=== PATIENT | male | born 1995 | race Caucasian/White ===

== ENCOUNTER 2019-11-06 08:52 | Emergency (ER) | payer OTHER, SELFPAY ==
[2019-11-06 08:53] VITALS: BP 140/91; PULSE 83; RESP 16; TEMP 36.6; O2SAT 100; BMI 30.4
--- NOTE | 2019-11-06 08:53 | EKG12_ITS ---
Test Reason : DIZZINESS Blood Pressure : / mmHG Vent. Rate : 078 BPM Atrial Rate : 078 BPM P-R Int : 142 ms QRS Dur : 090 ms QT Int : 350 ms P-R-T Axes : 035 048 017 degrees QTc Int : 399 ms Normal sinus rhythm Normal ECG Confirmed by ANISH HOLDER ([id number]), writer editor SCOTT ALMAGUER ([id number]) on 11/08/2019 7:40:20 AM Referred By: GUILLERMINA Confirmed By:ANISH HOLDER
--- NOTE | 2019-11-06 08:54 | CT_ITS ---
STUDY: CT BRAIN WITHOUT CONTRAST REASON FOR EXAM: Male, 23 years old. INJURY TO FOREHEAD -- SYNCOPE EPISODE THIS AM -STRUCK LEFT FOREHEAD RADIATION DOSAGE (If Supplied By Facility): CTDIvol = ( 44.99 ) mGy, DLP = ( 745.49 ) mGycm TECHNIQUE: Transaxial CT imaging of the brain was performed without administration of intravenous contrast material. Individualized dose optimization techniques were used for this CT. COMPARISON: No relevant priors. FINDINGS: Normal soft tissue structures. Normal calvarium. Prominent CSF space along the posterior aspect of the right occipital lobe measuring 2.1 cm x 4.6 cm x 3.5 cm. This may represent either a prominent cisterna magna or possible arachnoid cyst. Normal size ventricles and extra-axial spaces for the patient''s age. Normal white matter tracts of the cerebral hemispheres. Normal basal ganglia and thalami. Normal brainstem. Normal cerebellum. There is no intracranial hemorrhage. There are no findings of an acute ischemic infarction. Normal visualized paranasal sinuses. 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 An arachnoid cyst cannot be excluded. Electronically Signed: Alfonzo Cooney, at 9:54 EDT , Service support ,
--- NOTE | 2019-11-06 08:58 | ED.DCSUM_ITS ---
History of Present Illness Chief Complaint: Dizziness Detail of Chief Complaint: syncope Informant: Patient Onset: Today - JPTA Context: Sudden Onset Timing: Intermittent - x1 Quality: lightheaded, followed by syncope and collapse Current Severity: Mild Maximum Severity: Severe Worsened by: ninak Relieved by: ninak Narrative: Patient states he works at [employer], he was standing for a short period of time, watching a presentation from someone from [employer]. He started feeling lightheaded, then he basically progressed to a syncopal episode, falling and hitting his head on the pavement he was standing on, breaking his eyeglasses. He recovered after short period of time, 911 was called and EMS picked him up. By the time he got here he basically feels almost back to normal just a little lightheaded, he walked out of the ambulance into the ER without any difficulty. He states prior to this, he ate and drank nothing today. He does present here only at 9 AM, however. When discussing yesterday, it was very hot outside, and he was outside a bit, and he drank very little. EMS did not check a blood sugar, his coworkers gave him a bottle of water to drink prior to EMSs arrival. He has no known medical problems. He denies having any chest pain or palpitations or shortness of breath or headache prior to the event. Past Medical History - Allergies and Home Meds Allergies/Adverse Reactions: Allergies No Known Allergies Allergy (Verified 11/06/19 08:57) Primary Care Physician: Doctor,Your [STAFF PHYSICIAN] - (when able) Past Medical History: None Surgical History: no surgical history Lives: With Family Review of Systems General: Reports: Malaise. Denies: Chills, Fever, Sweats Eyes: Denies: Visual changes - bilaterally, Diplopia ENT: Denies: Rhinorrhea, Sore throat Cardiovascular: Denies: Chest pain, Palpitations Respiratory: Denies: Dyspnea, Cough, Dyspnea on exertion Gastrointestinal: Denies: Abdominal pain, Nausea, Vomiting, Diarrhea, Melena, Hematochezia Genitourinary: Denies: Dysuria, Hematuria, Frequency Musculoskeletal: Denies: Back pain, Swelling, Extremity Pain Skin: Denies: Rash, Wounds Neurological: Denies: Headache, Weakness, Numbness Physical Exam Vital Signs/Narrative: Vital Signs Temp Pulse Resp BP Pulse Ox 11/06/19 08:53 98 F 83 16 140/91 H 100 Inital Vital Signs reviewed: Yes General: Well nourished, Well developed, No Acute Distress Head: Normocephalic, Trauma - Left forehead only. No crepitance or depression. Eyes: Perrl, EOMI - Without pain or entrapment ENT: Moist mucous membranes, No rhinorrhea, TM's clear - Without hemotympanum. No zimmer sign. No otorrhea. Neck: Supple, Nontender Cardiovascular: Regular rate, Regular rhythm, No murmurs. Negative for: Tachycardia Respiratory: No distress, CTA bilaterally, Chest nontender Abdomen: Soft, Nontender, Nondistended, Normal bowel sounds Back: Nontender, Normal Inspection Extremities: Nontender, No edema. Negative for: Calf Tenderness Skin: Normal color, No rash, Trauma - mildly tender contusion left forehead Neurological: Alert, Oriented x3, Cranial nerves II-XII grossly intact, Normal Strength, Normal Sensation, - - GCS 15 Psychological: Normal affect, Normal Mood Diagnostic/Tx/Re-eval Impressions Brain CT 11/06/19 08:54 IMPRESSION: Prominent CSF space as described along the posterior aspect of the right occipital lobe most likely representing a large cisterna magna. An arachnoid cyst cannot be excluded. Electronically Signed: Alfonzo Cooney, at 9:54 EDT , Service support , 11/06/19 08:54 Brain/Head without Contrast [CT] Stat Laboratory Results 11/06/19 11/06/19 11/06/19 09:07 09:20 09:20 WBC 8.0 RBC 5.02 Hgb 15.1 Hct 46.9 MCV 93.4 MCH 30.1 MCHC 32.2 RDW Std Deviation 43.7 RDW Coeff of Randolph 12.9 Plt Count 197 MPV 10.6 Immature Gran % (Auto) 0.100 Neut % (Auto) 56.3 Lymph % (Auto) 33.2 Rowan % (Auto) 7.0 Eos % (Auto) 2.9 Baso % (Auto) 0.5 Absolute Neuts (auto) 4.5 Absolute Lymphs (auto) 2.65 Nucleated RBC % 0 Sodium 143 Potassium 4.9 Chloride 110 H Carbon Dioxide 27.0 Anion Gap 6 BUN 12 Creatinine 0.98 Estim Creat Clear Calc 115.36 Est GFR (MDRD) Af Amer 124 Est GFR (MDRD) Non-Af 102 BUN/Creatinine Ratio 12.3 Glucose 91 Calcium 9.4 POC Glucose 99 - Rhythm Strip Rhythm Strip: Sinus Rhythm Rate: 78 Ectopy: None - EKG Initial EKG Interpretation: Sinus Rhythm, No Acute Injury Pattern - normal EKG - Medical Decision Making Blood sugar 99. Orthostatics negative. He was given a liter of fluid, and his head was CT, other work-up was performed. Labs are unremarkable, EKG normal, CT shows no acute injury. It does show a prominent cisterna magna, this may represent an arachnoid cyst. Discussed this with the patient, this can be followed up as an outpatient. After fluids, he is feeling better, ambulatory without symptoms. He does not have any symptoms of a concussion at this time. 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 I suspect this was a lack of fluid and standing locking his knees, he did not have any concerning prodromal symptoms to suggest other pathology at this time. Discussed reasons to return and follow-up; he has no primary physician so he was referred to the next doctor on the unassigned list Dr. Mendez. He is comfortable with that plan. ED Disposition - Plan for ED Patient: Disposition: Home or Assisted Living Diagnosis: Syncope and collapse, Closed head injury without concussion, Mild dehydration, Intracranial arachnoid cyst Instructions: ED Dehydration Adult, ED Fainting Uncertain Cause Referrals: Selena Mendez MD [STAFF PHYSICIAN] - (call for appt)
[2019-11-06 09:03] VITALS: BP 129/65; BP 129/81; BP 133/81; BP 134/94; PULSE 77; PULSE 89; PULSE 90; RESP 16; O2SAT 100
[2019-11-06 09:16] LABS: Bedside Glucose 99 mg/dL (70-110)
[2019-11-06] MEDS: 0.9% Normal Saline 1,000 ML 999 ML IV (09:23)
[2019-11-06 09:28] LABS: Absolute Lymphocyte Count 2.65 X10^3/uL (0.83-4.51); Absolute Neutrophil Count 4.5 X10^3/uL (2.0-7.7); Basophil# 0.04 X10^3/uL; Basophil% 0.5 % (0-1); Eosinophil# 0.23 X10^3/uL; Eosinophils% 2.9 % (0-5); Hematocrit 46.9 % (40-54); Hemoglobin 15.1 g/dL (13.0-16.5); Lymphocyte # 2.65 X10^3/ul (4.0); Lymphocyte % 33.2 % (19-41); Mean Corp Hgb Conc 32.2 g/dL (32-36); Mean Corpuscular Hgb 30.1 pg (27.0-32.0); Mean Corpuscular Volume 93.4 fL (80-94); Mean Platelet Vol. 10.6 fl (6.2-12.0); Monocyte# 0.56 X10^3/uL; NRBC Flagged by Analyzer 0 % (0-5); Neutrophil # 4.49 X10^3/uL (2.7-7.7); Neutrophil % 56.3 % (47-70); Platelet Count 197 K/mm3 (150-450); RBC Distribution Width CV 12.9 % (11.6-14.6); RBC Distribution Width SD 43.7 fl (35.1-43.9); Red Blood Count 5.02 M/mm3 (4.6-6.2)
[2019-11-06 09:43] LABS: Anion Gap 6 (5-15); BUN 12 mg/dL (7-18); BUN/Creat Ratio 12.3 RATIO (10-20); Calcium,Total 9.4 mg/dL (8.5-10.1); Chloride 110 mmol/L (98-107); Creatinine, Serum 0.98 mg/dL (0.70-1.30); EST Glomerular Filtration Rate 102 mL/min (>60); Est Glom Filt Rate - Afr Amer 124 mL/min (>60); Estimated Creatinine Clearance 115.36 ml/min; Glucose 91 mg/dL (74-106); Potassium 4.9 mmol/L (3.5-5.1); Sodium Level 143 mmol/L (136-145)
[2019-11-06 11:14] VITALS: BP 128/72; PULSE 72; RESP 16; O2SAT 99
== END 2019-11-06 11:15 | disposition home or self-care (01) ==
PROVIDERS: Emergency Provider Emergency Medicine
DX: R55 Syncope and collapse (principal); S09.90XA Unspecified injury of head, initial encounter; E86.0 Dehydration; G93.0 Cerebral cysts; W19.XXXA Unspecified fall, initial encounter; Y93.9 Activity, unspecified; Y92.9 Unspecified place or not applicable
CPT/HCPCS: 70450; 80048; 82962; 85025; 93005; 96360; 99285; J7030; A4216

== ENCOUNTER → 2023-02-14 | Outpatient (CLI) | payer OTHER, SELFPAY ==
--- NOTE | 2023-02-14 | LES_PTH ---
PATIENT: CARMEN GOULD LOC: [facility] U#:[id number] AGE/SX: 27/M ROOM: RE02/14/[address]: Dr. Juarez Mendez MD : 1995 BED: DIS: 02/14/2023 SPEC #: [id number] RECD: 02/14/23 17:53 STATUS: JAYCEE REQ #: [id number] PIERRE: 02/14/23 00:[address]: Juarez Mendez DEPT: SURGICAL PATHOLOGY RECD BY: Nilton Cueva ENTERED: 02/15/23 08:24 SP TYPE: Lesion OTHR DR: No Primary Care Phys Tissues: Skin of eyelid, NOS Procedures: Surgery Specimen Level IV HEADER OPERATION: Excision of lesion left upper eyelid PRE-OP DIAGNOSIS: Possible papilloma TISSUE SUBMITTED: Left upper eyelid lesion MICROSCOPIC DIAGNOSIS Left upper eyelid lesion, excision: Squamous papilloma. NORMAN:louann 02/16/2023 MICROSCOPIC DESCRIPTION Slides are reviewed. GROSS DESCRIPTION Received is one container labeled with the patient's name and not further designated. The specimen consists of a piece of woody-white skin measuring 0.5 x 0.4 x 0.2 cm. Multiple hair are also noted. The skin surface is verrucous. The specimen is totally submitted in one cassette. / SJ:rg 02/15/2023 TC:1 CPT: 62757
== END | disposition home or self-care (01) ==
LOC: LABSPEC 02-15 08:06
PROVIDERS: Visit Provider Ophthalmology
DX: H02.9 Unspecified disorder of eyelid (principal)
CPT/HCPCS: 88305